=== PATIENT | male | born 1990 | race Hispanic/Latino ===

== ENCOUNTER 2019-07-01 09:40 | Emergency (ER) | payer SELFPAY ==
[2019-07-01] MEDS ORDERED: NA BORATE/BORIC AC/H2O/NACL 120 ML OPHTH IRRIG SOLN ONE (10:39)
[2019-07-01] MEDS ORDERED: TETRACAINE HCL 0.5% 4 ML OPHTH SOLN ONE (10:39)
[2019-07-01] MEDS ORDERED: FLUORESCEIN SODIUM 1 STRIP STRIP ONE (10:40)
== END 2019-07-01 12:38 | disposition home or self-care (01) ==
LOC: EDH 09:40
DX: S05.01XA Injury of conjunctiva and corneal abrasion without foreign body, right eye, initial encounter (principal); W50.4XXA Accidental scratch by another person, initial encounter; Y93.89 Activity, other specified; Y92.89 Other specified places as the place of occurrence of the external cause; Y99.8 Other external cause status

== ENCOUNTER 2021-04-05 15:13 | Emergency (ER) | payer SELFPAY ==
[~2021-04-05] VITALS: Ht 175.3 cm; Wt 104.3 kg
[2021-04-05 15:23] VITALS: BP 152/101
[2021-04-05] MEDS ORDERED: DEXAMETHASONE SOD PHOSPHATE 4 MG/ML 1ML VIAL IM SCH (15:30)
[2021-04-05] MEDS ORDERED: IBUPROFEN 600 MG TABLET ONE (15:30)
[2021-04-05] MEDS ORDERED: DEXAMETHASONE SOD PHOSPHATE 4 MG/ML 1ML VIAL ONE (15:30)
[2021-04-05] MEDS ORDERED: IBUPROFEN 600 MG TABLET PO ONE (15:30)
[2021-04-05] MEDS ORDERED: CYCL10TA16 PO (15:32)
[2021-04-05] MEDS ORDERED: IBUP-2070 PO (15:32)
[2021-04-05] MEDS ORDERED: METH4TAB PO (15:32)
== END 2021-04-05 15:39 | disposition home or self-care (01) ==
LOC: EDH 15:13
DX: M79.651 Pain in right thigh (principal); M25.571 Pain in right ankle and joints of right foot; Z79.1 Long term (current) use of non-steroidal anti-inflammatories (NSAID); Z79.52 Long term (current) use of systemic steroids
CPT/HCPCS: 96372; 99283; J1100